=== PATIENT | male | born 1975 | race Caucasian/White ===

== ENCOUNTER 2024-07-28 00:46 | Emergency (ER) | payer OTHER ==
[2024-07-28 01:08] VITALS: RESP 18; TEMP 97.8
--- NOTE | 2024-07-28 01:49 | ED ---
Upper Extremity HPI - General Chief Complaint: Extremity Injury, Upper Stated Complaint: Lft Hand Pain Time Seen by Provider: 07/28/24 01:15 Source: patient Mode of arrival: ambulatory Limitations: no limitations - History of Present Illness Initial Comments: 48-year-old male presenting with chief complaint of left hand pain. Patient had previous hand pain around [place]. He denies any injury or trauma. States that the pain goes from his knuckles to his wrist. He had some swelling at that time as well. He was seen by urgent care and started on a steroid and his symptoms resolved. States that recently his symptoms started again. He again denies any injury or trauma. He does get some occasional tingling in his first and second digit. No pain of the forearm into the elbow. He has full range of motion of the fingers. He has difficulty with extending the wrist. No erythema. No fever. Very minimal swelling. - Related Data Previous Rx's Medication Instructions Recorded predniSONE [Deltasone] 40 mg PO BID 5 Days #20 tab 07/28/24 Allergies Allergy/AdvReac Type Severity Reaction Status Date / Time No Known Allergies Allergy Verified 07/28/24 01:08 Review of Systems ROS Statement: Those systems with pertinent positive or pertinent negative responses have been documented in the HPI. ROS Other: All systems not noted in ROS Statement are negative. General Exam Limitations: no limitations General appearance: alert, in no apparent distress Head exam: Present: atraumatic, normocephalic, normal inspection Eye exam: Present: normal appearance, EOMI Neck exam: Present: normal inspection. Absent: meningismus Respiratory exam: Absent: respiratory distress Cardiovascular Exam: Present: regular rate Left Hand Wrist exam: Present: normal inspection, full ROM, tenderness, swelling (very minimal). Absent: erythema Vascular: Absent: vascular compromise Neurological exam: Present: alert, oriented X3 Psychiatric exam: Present: normal affect, normal mood Skin exam: Present: warm, dry Course Vital Signs 07/28/24 07/28/24 01:04 02:41 Temperature 97.8 F Pulse Rate 67 66 Respiratory 18 18 Rate Blood Pressure 132/84 135/91 O2 Sat by Pulse 98 99 Oximetry Medical Decision Making - Medical Decision Making Was pt. sent in by a medical professional or institution (, PA, INVESTMENTS MANAGER, urgent care, hospital, or alf...) When possible be specific @ -No Did you speak to anyone other than the patient for history (EMS, parent, family, police, friend...)? What history was obtained from this source @ -No Did you review nursing and triage notes (agree or disagree)? Why? @ -I reviewed and agree with nursing and triage notes Were old charts reviewed (outside hosp., previous admission, EMS record, old EKG, old radiological studies, urgent care reports/EKG's, alf records)? Report findings @ -No old charts were reviewed Differential Diagnosis (chest pain, altered mental status, abdominal pain women, abdominal pain men, vaginal bleeding, weakness, fever, dyspnea, syncope, headache, dizziness, GI bleed, back pain, seizure, CVA, palpatations, mental health, musculoskeletal)? @ -Differential Musculoskeletal Muscular strain, contusion, ligament sprain, fracture, arthritis, septic arthritis, bursitis, cellulitis, muscle spasm, nerve compression, DVT, arterial occlusion, herpes zoster, electrolyte abnormality, tumor.... This is not meant to be in all inclusive list EKG interpreted by me (3pts min.). @ -As above X-rays interpreted by me (1pt min.). @ -By my interpretation there does appear to be a metallic foreign body near the second metacarpal. No obvious fracture or dislocation. Formal report is pending. CT interpreted by me (1pt min.). @ -None done U/S interpreted by me (1pt. min.). @ -None done What testing was considered but not performed or refused? (CT, X-rays, U/S, labs)? Why? @ -None What meds were considered but not given or refused? Why? @ -None Did you discuss the management of the patient with other professionals (professionals i.e. , PA, INVESTMENTS MANAGER, lab, RT, psych nurse, manager social work, hand router operator, teacher, risk officer, correctional case manager)? Give summary @ -No Was smoking cessation discussed for >3mins.? @ -No Was critical care preformed (if so, how long)? @ -No Were there social determinants of health that impacted care today? How? (Homelessness, low income, unemployed, alcoholism, drug addiction, transportation, low edu. Level, literacy, decrease access to med. care, fdc, rehab)? @ -No Was there de-escalation of care discussed even if they declined (Discuss DNR or withdrawal of care, Hospice)? DNR status @ -No What co-morbidities impacted this encounter? (DM, HTN, Smoking, COPD, CAD, Cancer, CVA, ARF, Chemo, Hep., AIDS, mental health diagnosis, sleep apnea, morbid obesity)? @ -None Was patient admitted / discharged? Hospital course, mention meds given and route, prescriptions, significant lab abnormalities, going to OR and other pertinent info. @ -48-year-old male presenting with chief complaint of left hand pain. No injury or trauma. He is neurovascularly intact. There is some very mild swelling, no erythema. No fever. X-ray shows no obvious fracture or dislocation. There is a small metallic foreign body, patient denies any recent injury that would have caused this and there are no breaks in the skin. This likely is not the source of this pain. Does not seem consistent with infection. Seems more consistent with gout, patient will be treated for gout. Patient is educated on today's findings and management at home. Follow-up with PCP. Report back to ER with any new or worsening symptoms. Discussed return parameters and answered all questions. Patient conveyed verbal understanding and agreed to the plan. My attending is Dr. Julian Undiagnosed new problem with uncertain prognosis? @ -No Drug Therapy requiring intensive monitoring for toxicity (Heparin, Nitro, Insulin, Cardizem)? @ -No Were any procedures done? @ -No Diagnosis/symptom? @ -Gout Acute, or Chronic, or Acute on Chronic? @ -Acute Uncomplicated (without systemic symptoms) or Complicated (systemic symptoms)? @ -Uncomplicated Side effects of treatment? @ -No Exacerbation, Progression, or Severe Exacerbation? @ -No Poses a threat to life or bodily function? How? (Chest pain, [place], [place], pneumonia, PE, COPD, DKA, ARF, appy, cholecystitis, CVA, Diverticulitis, Homicidal, S uicidal, threat to staff... and all critical care pts) @ -Unlikely Disposition Clinical Impression: Gout Disposition: HOME SELF-CARE Condition: Good Instructions (If sedation given, give patient instructions): Low Purine Diet (ED), Gout (ED) Additional Instructions: Follow-up with PCP, suggestions provided. Report back to ER with any new or worsening symptoms. Prescriptions: predniSONE [Deltasone] 40 mg PO BID 5 Days #20 tab Is patient prescribed a controlled substance at d/c from ED?: No Referrals: None,Stated [Primary Care Provider] - 1-2 days Forms: Area PCPs Time of Disposition: 02:20
[2024-07-28] MEDS: KETOROLAC 15 MG/ML 1 ML VIAL IM STA (01:53)
[2024-07-28] MEDS: methylPREDNISolone SOD SUCCI 125 MG/2 ML VIAL IM ONE (01:53)
[2024-07-28 02:46] VITALS: BP 135/91; PULSE 66
--- NOTE | 2024-07-28 03:31 | XR ---
EXAM: XR Left Hand Complete, 3 or More Views CLINICAL HISTORY: ITS.REASON XR Reason: pain TECHNIQUE: Frontal, lateral and oblique views of the left hand. COMPARISON: No relevant prior studies available. FINDINGS: Bones/joints: Metallic fragment measuring 2 mm located along the radial aspect of the second metacarpal head. No acute fracture. No dislocation. Soft tissues: Unremarkable. No radiopaque foreign body. IMPRESSION: No acute findings in the left hand.
== END 2024-07-28 02:41 | disposition home or self-care (01) ==
LOC: EC 00:46
DX: M10.9 Gout, unspecified (principal)
CPT/HCPCS: 73130; 99283; 96372 ×2; J1885; J2919